=== PATIENT | male | born 1945 | race Caucasian/White ===

== ENCOUNTER 2016-09-27 08:42 | Emergency (ER) | payer MEDICARE ==
[~2016-09-27] VITALS: Ht 182.9 cm; Wt 100.0 kg
[~2016-09-27 08:42] MED LIST: RANI150 PO
[2016-09-27 08:44] VITALS: BP 165/87; PULSE 60; RESP 20; TEMP 97.5; O2SAT 96
[2016-09-27] MEDS ORDERED: ONDANSETRON HCL 4 MG/2 ML VIAL IV PUSH ONE (09:00)
[2016-09-27] MEDS ORDERED: SODIUM CHLOR 0.9% 1000 ML INJ 1,000 ML IV ONE (09:00)
[2016-09-27] MEDS ORDERED: TAMSULOSIN HCL 0.4 MG CAP PO ONE (09:00)
[2016-09-27] MEDS ORDERED: MORPHINE SULFATE 8 MG/ML INJ IV PUSH ONE (09:00)
[2016-09-27] MEDS ORDERED: OMEP10CA PO (09:07)
--- NOTE | 2016-09-27 09:07 | PD ---
HPI . Suprapubic pain Chief Complaint: Abdominal Pain Time Seen by Provider: 08:54 Travel History International Travel<30 days: No Contact w/Intl Traveler<30days: No Traveled to known affect area: No History of Present Illness HPI This patient presents with the chief complaint of suprapubic pain. Onset was last night. Pain has been constant and is getting progressively worse. Pain is exacerbated by lying down. Revised FLACC pain score is 0. Patient is also complaining with dribbling. He denies any fever. He denies any anorexia. He has had no nausea, vomiting or diarrhea. He states that he might be a little bit constipated. PFSH Past Medical History Heart Rhythm Problems: No Cancer: No Cardiac Catheterization: No Cardiovascular Problems: No High Cholesterol: No Congestive Heart Failure: No Diabetes: No Diminished Hearing: No Glaucoma: No Hepatitis: No Hiatal Hernia: No Hypertension: No Kidney Stones: Yes (REMOVED.) Respiratory: No Myocardial Infarction: No Thyroid Disease: No Past Surgical History Coronary Artery Bypass Graft: No Genitourinary Surgery: Yes (KIDNEY STONES) Neurologic Surgery: Yes (LUMBAR SURGERY) Pacemaker: No Other Surgery: Yes (RT KNEE) Social History Alcohol Use: Yes (a couple beers 3 to 4 times a week) Tobacco Use: No (quit 15 yrs ago, smoked 30yrs, 1 pk qd) Substance Use: No Allergies-Medications (Allergen,Severity, Reaction): Coded Allergies: No Known Allergies (Verified , 09/27/16) Reported Meds & Prescriptions Reported Meds & Active Scripts Active Reported Omeprazole 10 Mg Cap 10 Mg PO DAILY Review of Systems Except as stated in HPI: all other systems reviewed are Neg General / Constitutional: No: Fever, Chills Gastrointestinal: Positive: Abdominal Pain, Constipation, No: Nausea, Vomiting , Diarrhea Genitourinary: Positive: Decreased Urinary Output, Hesitancy, Dribbling, No: Urgency, Frequency, Dysuria, Hematuria Physical Exam Narrative GENERAL: Patient is awake and alert and does not appear to be in any distress. SKIN: Warm and dry. HEAD: Atraumatic. Normocephalic. EYES: Pupils equal and round. Extraocular movements are intact. ENT: No nasal bleeding or discharge. Mucous membranes pink and moist. NECK: Trachea midline. Neck is supple. CARDIOVASCULAR: Regular rate and rhythm. RESPIRATORY: No accessory muscle use. GASTROINTESTINAL: Abdomen soft. Suprapubic tenderness. Nondistended. No CVA tenderness. MUSCULOSKELETAL: No obvious deformities. No edema. NEUROLOGICAL: Awake and alert. No obvious cranial nerve deficits. Motor grossly within normal limits. Normal speech. PSYCHIATRIC: Appropriate mood and affect; insight and judgment normal. Data Data Last Documented VS Vital Signs Date Time Temp Pulse Resp B/P Pulse Ox O2 Delivery O2 Flow Rate FiO2 09/27/16 08:44 97.5 60 20 165/87 96 Room Air Orders Urinalysis - C+S If Indicated (09/27/16 08:58) Ct Abd/Pel W/O Iv Contrast (09/27/16 09:00) Sodium Chlor 0.9% 1000 Ml Inj (Ns 1000 M (09/27/16 09:00) Morphine Inj (Morphine Inj) (09/27/16 09:00) Ondansetron Inj (Zofran Inj) (09/27/16 09:00) Tamsulosin (Flomax) (09/27/16 09:00) Labs Laboratory Tests Test 09/27/16 09:46 Urine Color YELLOW Urine Turbidity CLEAR Urine pH 6.5 Urine Specific [place] 1.025 Urine Protein TRACE mg/dL Urine Glucose (UA) TRACE mg/dL Urine Ketones NEG mg/dL Urine Occult Blood NEG Urine Nitrite NEG Urine Bilirubin NEG Urine Urobilinogen 2.0 MG/DL Urine Leukocyte Esterase NEG Urine RBC 2 /hpf Urine WBC LESS THAN 1 /hpf Urine Mucus FEW /lpf Microscopic Urinalysis Comment CULT NOT INDICATED MDM Medical Decision Making Medical Screen Exam Complete: Yes Emergency Medical Condition: Yes Differential Diagnosis Differential diagnosis of abdominal pain includes but is not limited to gastritis, pancreatitis, hepatitis, gastroenteritis, gallbladder disease, constipation, urinary retention, UTI, peptic ulcer disease, diverticulitis or appendicitis Narrative Course This patient presents with suprapubic pain associated with urinary hesitancy and dribbling. I do not see any previous advanced radiographic studies of his abdomen. Therefore, I have ordered a CT to rule out AAA or kidney stone. He will be treated with IV fluids, IV analgesics and Flomax pending his workup. Last Impressions Abdomen/Pelvis CT 09/27/16 0900 Signed Impressions: Service Date/Time: Tuesday, September 27, 2016 10:33 - CONCLUSION: 1. Acute sigmoid diverticulitis without perforation, abscess, or obstruction. 2. No renal or ureteral calculi. 3. Hepatic steatosis. Rey Lugo Jr., MD Laboratory Tests Test 09/27/16 09:46 Urine Color YELLOW Urine Turbidity CLEAR Urine pH 6.5 Urine Specific [place] 1.025 Urine Protein TRACE mg/dL Urine Glucose (UA) TRACE mg/dL Urine Ketones NEG mg/dL Urine Occult Blood NEG Urine Nitrite NEG Urine Bilirubin NEG Urine Urobilinogen 2.0 MG/DL Urine Leukocyte Esterase NEG Urine RBC 2 /hpf Urine WBC LESS THAN 1 /hpf Urine Mucus FEW /lpf Microscopic Urinalysis Comment CULT NOT INDICATED This patient will be treated with Bactrim and Flagyl as well as [place] for pain. Diagnosis Primary Impression: Diverticulitis large intestine w/o perforation or abscess w/o bleeding Patient Instructions: Diverticulitis (DC), General Instructions, Narcotic given in the ED Med/Other Pt SpecificInfo: Prescription(s) given Scripts Hydrocodone-Acetaminophen ([place])5-325 mg Tab1 Tab PO Q4H PRN (PAIN) #12 TAB Ref 0 Prov:Khalida Alvarado MD 09/27/16 Metronidazole (Flagyl)500 Mg [id number] Mg PO BID 7 Days Ref 0 Prov:Khalida Alvarado MD 09/27/16 Sulfamethoxazole-Trimethoprim (Bactrim DS)800-160 Mg Tab1 Tab PO BID #20 TAB Ref 0 Prov:Khalida Alvarado MD 09/27/16 Disposition: 01 DISCHARGE HOME Condition: Stable Khalida Alvarado MD Sep 27, 2016 09:07
[2016-09-27 10:12] LABS: BLOOD, URINE NEG (NEG); COMMENT (UR) CULT NOT INDICATED; CULTURE IF INDICATED CULT NOT INDICATED; GLUCOSE,URINE TRACE mg/dL (NEG); KETONE, URINE NEG (NEG); MUCUS URINE FEW /lpf (OCC); NITRITE,URINE NEG (NEG); PH, URINE 6.5 (5.0-8.5); URINE COLOR YELLOW (YELLW/STRAW)
--- NOTE | 2016-09-27 11:08 | RADRPT ---
EXAM DATE/TIME: 09/27/2016 10:33 [facility] COMPARISON: No previous studies available for comparison. INDICATIONS : Low abdomen pain. ORAL CONTRAST: No oral contrast ingested. RADIATION DOSE: 8.58 CTDIvol (mGy) MEDICAL HISTORY : Renal calculi. SURGICAL HISTORY : None. ENCOUNTER: Initial ACUITY: 1 day PAIN SCALE: 5/10 LOCATION: Bilateral lower quadrant TECHNIQUE: Volumetric scanning of the abdomen and pelvis was performed. Using automated exposure control and ad justment of the mA and/or kV according to patient size, radiation dose was kept as low as reasonably achievable to obtain optimal diagnostic quality images. DICOM format image data is available electro nically for review and comparison. FINDINGS: LOWER LUNGS: The visualized lower lungs are clear. LIVER: Homogeneously low density without lesion. There is no dilation of the biliary tree. No calcified ga llstones. SPLEEN: Normal size without lesion. PANCREAS: Within normal limits. KIDNEYS: Normal in size and shape. There is no mass, stone, or hydronephrosis. ADRENAL GLANDS: Within normal limits. VASCULAR: Scattered calcified atherosclerotic plaque. No gross aneurysmal change. BOWEL/MESENTERY: There is stranding of the pericolonic fat involving the sigmoid colon. There is mild wall thickening. Multiple colonic diverticuli are seen within the sigmoid region. No free air or free fluid. No absce ss. Small bowel and stomach are unremarkable. ABDOMINAL WALL: Within normal limits. RETROPERITONEUM: There is no lymphadenopathy. BLADDER: No wall thickening or mass. REPRODUCTIVE: Within normal limits. INGUINAL: There is no lymphadenopathy or hernia. MUSCULOSKELETAL: Within normal limits for patient age. CONCLUSION: 1. Acute sigmoid diverticulitis without perforation, abscess, or obstruction. 2. No renal or ureteral calculi. 3. Hepatic steatosis. Rey Lugo Jr., MD on September 27, 2016 at 10:55 Board Certified Radiologist. This report was verified electronically.
[2016-09-27] MEDS ORDERED: NORC5TAB PO (11:28)
[2016-09-27] MEDS ORDERED: METR-1 PO (11:28)
[2016-09-27] MEDS ORDERED: BACT800T5 PO (11:28)
== END 2016-09-27 11:55 | disposition home or self-care (01) ==
LOC: NEPD 08:42
DX: K57.92 Diverticulitis of intestine, part unspecified, without perforation or abscess without bleeding (principal); K76.0 Fatty (change of) liver, not elsewhere classified; Z87.891 Personal history of nicotine dependence
CPT/HCPCS: 74176; 81001; 96361; 96374; 96375; 99285; J2270; J2405; J7030

== ENCOUNTER 2018-02-12 15:50 | Observation (INO) ==
[2018-02-12] MEDS ORDERED: Morphine Inj 4 MG/ML Vial IV.PUSH ONE (16:11)
--- NOTE | 2018-02-12 16:14 | ED ---
HPI General Chief complaint: Chest Pain Stated complaint: chest pain Time Seen by Provider: 02/12/18 16:10 History of Present Illness HPI narrative: 72-year-old male with history of hypertension on lisinopril presents for evaluation of chest pain. For 1 week he has had a substernal chest pain that does not radiate. He describes it as a dull constant pain with occasional sharp twinges. It seems to be worse with exertion. He reports that today he had some dizziness as well. He is denying headache, blurred vision, nausea, vomiting, cough, congestion, abdominal pain, lower extremity edema. He reports that he is compliant with his prescribed lisinopril. He is not on any other medications. He denies any tobacco use. He denies any known history of aortic aneurysm. Symptoms are moderate. No other complaints. Related Data Home Medications Medication Instructions Recorded Confirmed lisinopril 20 mg PO DAILY 02/12/18 02/12/18 metformin 500 mg PO BID 02/12/18 02/12/18 omeprazole 20 mg PO BID 02/12/18 02/12/18 Allergies Allergy/AdvReac Type Severity Reaction Status Date / Time No Known Allergies Allergy Uncoded 09/27/16 09:52 Review of Systems ROS: all other systems reviewed are negative [facility] Medical History Medical History Diabetes (Acute) Hypertension (Acute) Surgical History Surgical History No history of previous surgery (Acute) Social History Social History Substance History: No History of Abuse Second Hand Smoke Exposure: No Smoking Status: Never smoker How Often Do You Have a Drink Containing Alcohol: 2 to 3 times a week Recent Travel in [facility] within the Last 8 Weeks: No Recent Out of Country Travel within the Last 8 Weeks: No Exam Narrative Exam Narrative: GENERAL: Well-developed well-nourished male in no acute distress. He is hypertensive bilateral upper extremities. SKIN: Warm and dry. HEAD: Atraumatic. Normocephalic. EYES: Pupils equal and round. No scleral icterus. No injection or drainage. ENT: No nasal bleeding or discharge. Mucous membranes pink and moist. NECK: Trachea midline. No JVD. CARDIOVASCULAR: Regular rate and rhythm. No murmur appreciated. RESPIRATORY: No accessory muscle use. Clear to auscultation. Breath sounds equal bilaterally. GASTROINTESTINAL: Abdomen soft, non-tender, nondistended. Hepatic and splenic margins not palpable. MUSCULOSKELETAL: No obvious deformities. No clubbing. No cyanosis. No edema. NEUROLOGICAL: Awake and alert. No obvious cranial nerve deficits. Motor grossly within normal limits. Normal speech. PSYCHIATRIC: Appropriate mood and affect; insight and judgment normal. Course Initial Documented Vital Signs Temperature 97.6 F 02/12/18 15:58 Pulse Rate 77 02/12/18 15:58 Respiratory Rate 18 02/12/18 15:58 Blood Pressure 234/116 H 02/12/18 15:58 Pulse Oximetry 99 02/12/18 15:58 Last Documented Vital Signs Temperature 97.6 F 02/12/18 15:58 Pulse Rate 74 02/12/18 18:31 Respiratory Rate 17 02/12/18 18:31 Blood Pressure 211/102 H 02/12/18 18:31 Pulse Oximetry 98 02/12/18 18:31 Medical Decision Making IBAN Attestation IBAN supervised visit: Yes Attestation: I, Dr. Priest, have reviewed the advance practice practitioner's documentation and am in agreement, met with the patient face to face, made the diagnosis, and the medical decision making was done by me. *My assessment and Findings: 72 yo M w CP. Tn < 0.02. EKG sinus, rate 54, incomplete RBBB; HTN 220/110. BP dropped to 130s after SL nitro and 4mg morphine. CP went away with resolution of HTN. CTA shows no dissection. Admission for hypertensive urgency and/or ACS. Please refer to CHALINO Carl's note for additional information. Pt resting comfortably at 650pm, updated with results and plan. MDM Narrative Medical decision making narrative: Patient was placed on ECG monitor and pulse oximetry. Twelve-lead EKG obtained. Lab work, chest x-ray ordered. The patient was given aspirin, nitroglycerin, morphine. Because of the patient's severe hypertension, dizziness, CTA of the aorta was ordered. The patient was reexamined after 1 sublingual nitroglycerin and 4 mg of morphine , aspirin and his pain has resolved completely. His blood pressure did drop quite a bit. He became somewhat lightheaded and diaphoretic for several minutes but this improved after he was laid down flat. Lab work is been reviewed and found to be reassuring. Cardiac enzymes are negative. CT angiogram of the aorta reveals no acute abnormalities, atherosclerosis of the coronary vessels are noted. Upon reexamination he remains chest pain-free. His blood pressure has increased back to 192/93. Therefore nitropaste ordered. At this point in time the plan is to admit him for hypertensive urgency and chest pain. He is agreeable. Medical Screen Exam Complete: Yes Emergency Medical Condition: Yes Differential Diagnosis Differential Diagnosis: Hypertensive urgency, acute coronary syndrome, aortic dissection, pulmonary embolism, pericarditis, myocarditis, pneumothorax, hemothorax Lab Data Result diagrams: 02/12/18 16:25 02/12/18 16:25 Lab Results 02/12/18 02/12/18 02/12/18 Range/Units 16:25 16:25 16:25 WBC 6.0 (4.0-11.0) th/mm3 RBC 5.07 (4.50-5.90) mil/mm3 Hgb 17.0 (13.0-17.0) gm/dL Hct 49.0 (39.0-51.0) % MCV 96.5 (80.0-100.0) fL MCH 33.6 (27.0-34.0) pg MCHC 34.8 (32.0-36.0) % RDW 14.7 (11.6-17.2) % Plt Count 145 L (150-450) th/mm3 MPV 9.9 (7.0-11.0) fL Neut % (Auto) 68.0 (16.0-70.0) % Lymph % (Auto) 20.4 (9.0-44.0) % [place] % (Auto) 9.6 H (0.0-8.0) % Eos % (Auto) 1.1 (0.0-4.0) % Baso % (Auto) 0.9 (0.0-2.0) % Neut # (Auto) 4.1 (1.8-7.7) th/mm3 Lymph # (Auto) 1.2 (1.0-4.8) th/mm3 [place] # (Auto) 0.6 (0.0-0.9) th/mm3 Eos # (Auto) 0.1 (0.0-0.4) th/mm3 Baso # (Auto) 0.1 (0.0-0.2) th/mm3 WBC Differential . Differential Comment Auto diff final PT 10.5 (9.8-11.6) sec INR 1.0 Ratio APTT 26.2 (23.4-31.7) sec Sodium 141 (136-145) meq/L Potassium 3.7 (3.5-5.1) meq/L Chloride 106 (98-107) meq/L Carbon Dioxide 24.1 (21.0-32.0) meq/L Anion Gap 11 (5-15) meq/L BUN 14 (7-18) mg/dL Creatinine 1.04 (0.60-1.30) mg/dL Estimated GFR 71 L (>89) mL/min Random Glucose 105 (74-106) mg/dL Calcium 8.0 L (8.5-10.1) mg/dL Magnesium 1.8 (1.5-2.5) mg/dL Total Bilirubin 0.9 (0.2-1.0) mg/dL AST 42 H (15-37) U/L ALT 63 (12-78) U/L Alkaline Phosphatase 68 (45-117) U/L Total Creatine Kinase 59 (39-308) U/L Troponin I Less than 0.02 L (0.02-0.05) ng/mL Total Protein 7.5 (6.4-8.2) g/dL Albumin 3.9 (3.4-5.0) g/dL Imaging Data Radiologist's impression: Chest X-Ray 02/12/18 16:11 CONCLUSION: No acute cardiopulmonary abnormality is identified. Thoracic Aorta CT 02/12/18 16:40 CONCLUSION: 1. No aneurysm or dissection is identified. 2. There is coronary artery calcification and moderate severity atherosclerotic disease in the infrarenal aspect. 3. Additionally, no other acute abnormality is identified to explain the clinical symptoms. Nonacute findings include hepatic steatosis and small hiatal hernia. Discharge Plan Discharge Disposition Patient Disposition: ED Admit(ED Internal Use Only) Discharge Condition Condition: Stable Discharge Details Diagnosis: Chest pain, Hypertensive urgency Physicians Team ED Provider: Eduardo Priest ED Midlevel Provider: Duke Carl Primary Care Provider: [facility],Physician [facility] Rxs /Orders / Referrals /Forms Prescriptions: No Action metformin 500 mg Tablet 500 mg PO BID RF: 0 lisinopril 20 mg Tablet 20 mg PO DAILY RF: 0 omeprazole 20 mg Tablet,Delayed Release (Dr/Ec) 20 mg PO BID RF: 0 Discharge Instructions Patient Printed Instructions: Chest Pain (ED) Discharge Interventions Interventions: Vital Signs Last Done: 02/12/18 16:45 Status ED Status: With Doctor
--- NOTE | 2018-02-12 16:33 | XR ---
EXAM DATE: 02/12/2018 4:25 PM EST AGE/SEX: 72 years / Male INDICATIONS: Shortness of breath and left sided chest pain. CLINICAL DATA: This is the patient's initial encounter. Patient reports that signs and symptoms have been present for 1 day and indicates a pain score of 8/10. MEDICAL/SURGICAL HISTORY: Diabetes. Hypertension. None. COMPARISON: No prior exams available for comparison. FINDINGS: Portable AP view of the chest demonstrates a normal-sized cardiac silhouette. No effusion, consolidat ion, or pneumothorax is identified. The bones and soft tissues demonstrate no acute finding. There i s a calcified granuloma in the left midlung zone and EKG lines overlie the patient. CONCLUSION: No acute cardiopulmonary abnormality is identified. Electronically signed by: Cornelio Lopez MD 02/12/2018 4:32 PM EST
[2018-02-12 16:56] LABS: Baso # (Auto) 0.1 th/mm3 (0.0-0.2); Baso % (Auto) 0.9 % (0.0-2.0); Eos # (Auto) 0.1 th/mm3 (0.0-0.4); Eos % (Auto) 1.1 % (0.0-4.0); Lymph # (Auto) 1.2 th/mm3 (1.0-4.8); Lymph % (Auto) 20.4 % (9.0-44.0); Mean Corpuscular HGB Conc 34.8 % (32.0-36.0); Mean Corpuscular Hemoglobin 33.6 pg (27.0-34.0); Mean Corpuscular Volume 96.5 fL (80.0-100.0); Mean Platelet Volume 9.9 fL (7.0-11.0); Mono # (Auto) 0.6 th/mm3 (0.0-0.9); Mono % (Auto) 9.6 % (0.0-8.0); Neut # (Auto) 4.1 th/mm3 (1.8-7.7); Platelet Count 145 th/mm3 (150-450); Red Blood Count 5.07 mil/mm3 (4.50-5.90); Red Cell Distribution Width 14.7 % (11.6-17.2)
[2018-02-12 17:04] LABS: Activated Partial Thrombo Time 26.2 sec (23.4-31.7); Prothrombin Time 10.5 sec (9.8-11.6)
[2018-02-12 17:06] LABS: Alanine Aminotransferase 63 U/L (12-78); Albumin 3.9 g/dL (3.4-5.0); Anion Gap 11 meq/L (5-15); Aspartate Aminotransferase 42 U/L (15-37); Blood Urea Nitrogen 14 mg/dL (7-18); Carbon Dioxide 24.1 meq/L (21.0-32.0); Chloride 106 meq/L (98-107); Glomerular Filtration Rate 71 mL/min (>89); Glucose,Random 105 mg/dL (74-106); Magnesium 1.8 mg/dL (1.5-2.5); Potassium 3.7 meq/L (3.5-5.1); Sodium 141 meq/L (136-145)
[2018-02-12 17:10] LABS: Alkaline Phosphatase 68 U/L (45-117); Total Protein 7.5 g/dL (6.4-8.2)
[2018-02-12 17:11] LABS: Creatine Kinase 59 U/L (39-308)
--- NOTE | 2018-02-12 18:42 | CT ---
EXAM DATE: 02/12/2018 6:33 PM EST AGE/SEX: 72 years / Male INDICATIONS: Chest pain; possible dissection. CLINICAL DATA: This is the patient's initial encounter. Patient reports that signs and symptoms have been present for 1 day and indicates a pain score of 7/10. MEDICAL/SURGICAL HISTORY: Diabetes. Hypertension. None. RADIATION DOSE: 9.14 CTDI (mGy) COMPARISON: [place], CT ABDOMEN & PELVIS W/O CONTRAST, 09/27/2016. . TECHNIQUE: Volumetric scanning was performed using a multi-row detector CT scanner during bolus infu kumar of 100 ml Omnipaque 350 (iohexol) nonionic water-soluble contrast as a single exam dose. The d estrada was post processed with a variety of visualization algorithms including full volume maximum inten sity projection, multi-planar sliding thin slab reformation, curved planar reformation, and surface r endering techniques. Using automated exposure control and adjustment of the mA and/or kV according t o patient size, radiation dose was kept as low as reasonably achievable to obtain optimal diagnostic quality images. DICOM format image data is available electronically for review and comparison. FINDINGS: Nonvascular findings: There is a calcified granuloma in the left upper lobe. Otherwise, the lungs dem onstrate no acute abnormality. There is no acute abnormality within the chest. Liver demonstrates att enuation suggesting steatosis. No liver lesion is identified. The adrenal glands, kidneys, spleen, an d pancreas demonstrate no acute abnormality. There is a small hiatal hernia. The small and large alexandra l demonstrate no acute finding. There is sigmoid diverticulosis. There are degenerative changes throu ghout the spine. Vascular findings: Pulmonary arteries demonstrate no abnormality. There is coronary artery calcificat ion. The ascending and descending thoracic aorta are nonaneurysmal. Great vessels demonstrate no acut e abnormality. There is mild atherosclerotic disease of the aorta. The celiac trunk, superior mesente elijah artery, and inferior mesenteric artery are patent without significant abnormality. There are clifford nt renal arteries bilaterally with an accessory left lower pole renal artery present. Infrarenal aspe ct of the aorta demonstrates moderate to severe atherosclerotic disease. The atherosclerotic disease extends into the iliac vessels. No aneurysm or dissection is visualized. CONCLUSION: 1. No aneurysm or dissection is identified. 2. There is coronary artery calcification and moderate severity atherosclerotic disease in the infra renal aspect. 3. Additionally, no other acute abnormality is identified to explain the clinical symptoms. Nonacute findings include hepatic steatosis and small hiatal hernia. Electronically signed by: Cornelio Lopez MD 02/12/2018 6:41 PM EST
--- NOTE | 2018-02-12 19:11 | P.HPFP ---
History of Present Illness Primary Care Physician: Physician [facility] <Azar Jimenez - 02/13/18 15:35> [facility]ician [facility] <Neris Scott - 02/12/18 19:11> Chief Complaint: chest pain <Neris Scott - 02/12/18 20:33> History of Present Illness: 72-year-old with a past medical history of hypertension and diabetes who presented to the ED with a one-week history of chest pain. The pain is located in the center of his chest and it waxes and wanes. Laying on either side makes the pain worse and laying flat on his back alleviates the pain. Activity does not aggravate the chest pain. 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 Patient was placed on lisinopril about 4-5 months ago and has been taking the medication daily for his HTN. He reports his home blood pressures have been in the 180s systolic. During his chest pain attacks he reports dizziness, lightheadedness, diaphoresis , near syncope, shortness of breath. He does have trouble initiating his urine stream but this is not new. Denies any vision changes, abdominal pain, bowel changes, dysuria, weakness, headache, speech difficulties, or hearing difficulty. PMH: hypertension diabetes but has not been taking his metformin PSH: right knee meniscus surgery Family History: mother: unknown father: viral brain disease Social History: Tobacco: quit 30 years ago but smoked 30 pack years Alcohol: 3-4 beers a day Loist 3 months ago Illicit drugs: occasional marijuana use [facility] [place] <Neris Scott - 02/12/18 20:33> - Diagnosis (1) Hypertensive urgency (2) Chest pain (3) GERD (gastroesophageal reflux disease) (4) Diabetes mellitus (5) Hypocalcemia (6) DVT prophylaxis (7) Nutrition, metabolism, and development symptoms <Azar Jimenez - 02/13/18 15:35> (1) Hypertensive urgency (2) Chest pain (3) GERD (gastroesophageal reflux disease) (4) Diabetes mellitus (5) Hypocalcemia (6) DVT prophylaxis (7) Nutrition, metabolism, and development symptoms <Neris Scott - 12/09/18 21:04> Review of Systems All other systems reviewed negative except as stated in HPI <TylerNeris Wilkins - 02/12/18 20:33> PMFSH - History History Provided By: Patient <Neris Scott - 02/12/18 19:11> - Medical History Medical History: Medical History (Last Updated 02/12/18 @ 16:44 by Juliet Marquez) Diabetes Hypertension <Azar Jimenez - 02/13/18 15:35> Medical History (Last Updated 02/12/18 @ 16:44 by Juliet Marquez) Diabetes Hypertension <TylerNeris A - 02/12/18 19:11> - Surgical History Surgical History: Surgical History (Last Updated 02/12/18 @ 16:44 by Juliet Marquez) No history of previous surgery <Azar Jimenez - 02/13/18 15:35> Surgical History (Last Updated 02/12/18 @ 16:44 by Juliet Marquez) No history of previous surgery <Neris Scott - 02/12/18 19:11> - Social History I have reviewed the patient's Social History: Yes <MauryalondraNeris Franky - 20:33> - Tobacco History Second Hand Smoke Exposure: No <Neris Scott - 02/12/18 19:11> Smoking Status: Never smoker <Neris Scott - 02/12/18 19:11> - Alcohol History How Often Do You Have a Drink Containing Alcohol: 2 to 3 times a week < Neris Scott - 02/12/18 19:11> - Substance Use History Substance History: No History of Abuse <Neris Scott - 02/12/18 19:11> - Travel History Recent Travel in the [place] Within the Last 8 Weeks: No <Neris Scott - 11/22 19:11> Recent Travel Out of the Country Within the Last 8 Weeks: No <Neris Scott - 02/12/18 19:11> - Immunization History Tetanus Immunization: >5 Years <Neris Scott - 02/12/18 19:11> Medications and Allergies Allergies Allergy/AdvReac Type Severity Reaction Status Date / Time No Known Allergies Allergy Uncoded 09/27/16 09:52 <Azar Jimenez - 02/13/18 15:35> Home Medications Medication Instructions Recorded Confirmed Type lisinopril 20 mg PO DAILY 02/12/18 02/12/18 History metformin 500 mg PO BID 02/12/18 02/12/18 History omeprazole 20 mg PO BID 02/12/18 02/12/18 History <Azar Jimenez - 02/13/18 15:35> Active Medications: Active Medications Sodium Chloride (Ns Flush) 2 ml IV.FLUSH UNSCH PRN PRN Reason: FLUSH AFTER USING IV ACCESS <Neris Scott - 02/12/18 19:11> Exam Vital signs: Vital Signs 02/12/18 15:58 02/12/18 16:11 02/12/18 16:12 Temperature 97.6 F Pulse Rate 77 Respiratory Rate 18 Blood Pressure 234/116 H 223/109 H Pulse Oximetry 99 98 02/12/18 16:45 02/12/18 18:05 02/12/18 18:31 Temperature Pulse Rate 63 61 74 Respiratory Rate 20 15 17 Blood Pressure 126/73 187/93 H 211/102 H Pulse Oximetry 94 L 98 98 02/12/18 20:20 02/12/18 22:50 02/12/18 23:16 Temperature Pulse Rate 74 63 70 Respiratory Rate 18 17 21 Blood Pressure 189/102 H 185/96 H 173/92 H Pulse Oximetry 95 96 02/12/18 23:40 02/13/18 00:00 02/13/18 04:00 Temperature 96.6 F L 96.1 F L Pulse Rate 66 60 56 L Respiratory Rate 16 18 18 Blood Pressure 170/90 H 163/90 H 186/97 H Pulse Oximetry 96 96 02/13/18 07:42 02/13/18 13:28 Temperature 97.4 F L 97.4 F L Pulse Rate 61 64 Respiratory Rate 16 16 Blood Pressure 169/92 H 164/87 H Pulse Oximetry 95 97 Intake & Output 02/12/18 02/13/18 02/13/18 18:59 06:59 18:59 Weight 95.254 kg 95.254 kg Other: Date of Last Bowel Movement 02/12/18 Weight On Admission 95.254 kg <Azar Jimenez - 02/13/18 15:35> Vital Signs 02/12/18 15:58 02/12/18 16:11 02/12/18 16:12 Temperature 97.6 F Pulse Rate 77 Respiratory Rate 18 Blood Pressure 234/116 H 223/109 H Pulse Oximetry 99 98 02/12/18 16:45 02/12/18 18:05 02/12/18 18:31 Temperature Pulse Rate 63 61 74 Respiratory Rate 20 15 17 Blood Pressure 126/73 187/93 H 211/102 H Pulse Oximetry 94 L 98 98 Intake & Output 02/12/18 02/12/18 02/13/18 06:59 18:59 06:59 Weight 95.254 kg <Neris Scott - 02/12/18 19:11> - Constitutional no acute distress <Neris Scott - 02/12/18 20:33> Comments: laying flat in bed <Neris Scott - 02/12/18 20:33> - Routine HEENT Exam Head: Present: normocephalic, atraumatic <Neris Scott A - 02/12/18 20:33> Eye: Present: EOMI, PERRL <Neris Scott A - 02/12/18 20:33> - Routine Neck Exam Present: full ROM <Neris Scott A - 02/12/18 20:33> - Routine Respiratory Exam Present: CTA bilaterally. Absent: accessory muscle use, decreased breath sounds <Neris Scott A - 02/12/18 20:33> - Routine Cardiovascular Exam Present: RRR, S1, S2. Absent: murmur <Neris Scott A - 02/12/18 20:33> - Routine Abdominal Exam Present: soft, normoactive bowel sounds, tenderness <Neris Scott A - 02/12 20:33> - Routine Extremities Exam Present: full ROM, pulses intact. Absent: cyanosis, edema <Neris Scott A - 02/12/18 20:33> - Routine Skin Exam Present: intact <Neris Scott A - 02/12/18 20:33> - Routine Neurological Exam Present: alert, oriented X3, CN II-XII intact, moving all extremities, vision grossly intact, hearing grossly intact, normal speech. Absent: sensory deficit , motor deficit, pronator drift, altered mental status, facial asymmetry < Neris Scott - 02/12/18 20:33> Results - Labs Result diagrams: 02/13/18 03:52 02/13/18 03:52 <Azar Jimenez - 02/13/18 15:35> Abnormal lab results 02/12/18 02/12/18 02/12/18 Range/Units 16:25 16:25 21:14 Plt Count 145 L (150-450) th/mm3 [place] % (Auto) 9.6 H (0.0-8.0) % Estimated GFR 71 L (>89) mL/min POC Glucose (68-110) mg/dl Random Glucose (74-106) mg/dL Calcium 8.0 L (8.5-10.1) mg/dL AST 42 H (15-37) U/L Troponin I Less than 0.02 L Less than 0.02 L (0.02-0.05) ng/mL LDL Cholesterol, Calc (0-99) mg/dL 02/13/18 02/13/18 02/13/18 Range/Units 03:52 03:52 08:29 Plt Count 123 L (150-450) th/mm3 [place] % (Auto) 9.2 H (0.0-8.0) % Estimated GFR 85 L (>89) mL/min POC Glucose 129 H (68-110) mg/dl Random Glucose 115 H (74-106) mg/dL Calcium 8.3 L (8.5-10.1) mg/dL AST (15-37) U/L Troponin I (0.02-0.05) ng/mL LDL Cholesterol, Calc 121 H (0-99) mg/dL 02/13/18 Range/Units 12:49 Plt Count (150-450) th/mm3 [place] % (Auto) (0.0-8.0) % Estimated GFR (>89) mL/min POC Glucose 196 H (68-110) mg/dl Random Glucose (74-106) mg/dL Calcium (8.5-10.1) mg/dL AST (15-37) U/L Troponin I (0.02-0.05) ng/mL LDL Cholesterol, Calc (0-99) mg/dL Short CBC 02/12/18 02/13/18 Range/Units 16:25 03:52 WBC 6.0 4.6 (4.0-11.0) th/mm3 Hgb 17.0 15.9 (13.0-17.0) gm/dL Hct 49.0 45.8 (39.0-51.0) % Plt Count 145 L 123 L (150-450) th/mm3 BMP 02/12/18 02/13/18 16:25 03:52 Sodium 141 137 Potassium 3.7 3.7 Chloride 106 104 Carbon Dioxide 24.1 26.9 BUN 14 13 Creatinine 1.04 0.89 Calcium 8.0 L 8.3 L Cardiac Enzymes 02/12/18 02/12/18 Range/Units 16:25 21:14 Total Creatine Kinase 59 45 (39-308) U/L Troponin I Less than 0.02 L Less than 0.02 L (0.02-0.05) ng/mL Liver Function 02/12/18 Range/Units 16:25 Total Bilirubin 0.9 (0.2-1.0) mg/dL AST 42 H (15-37) U/L ALT 63 (12-78) U/L Alkaline Phosphatase 68 (45-117) U/L Albumin 3.9 (3.4-5.0) g/dL <Azar Jimenez - 02/13/18 15:35> Abnormal lab results 02/12/18 02/12/18 Range/Units 16:25 16:25 Plt Count 145 L (150-450) th/mm3 [place] % (Auto) 9.6 H (0.0-8.0) % Estimated GFR 71 L (>89) mL/min Calcium 8.0 L (8.5-10.1) mg/dL AST 42 H (15-37) U/L Troponin I Less than 0.02 L (0.02-0.05) ng/mL Short CBC 02/12/18 Range/Units 16:25 WBC 6.0 (4.0-11.0) th/mm3 Hgb 17.0 (13.0-17.0) gm/dL Hct 49.0 (39.0-51.0) % Plt Count 145 L (150-450) th/mm3 BMP 02/12/18 16:25 Sodium 141 Potassium 3.7 Chloride 106 Carbon Dioxide 24.1 BUN 14 Creatinine 1.04 Calcium 8.0 L Cardiac Enzymes 02/12/18 Range/Units 16:25 Total Creatine Kinase 59 (39-308) U/L Troponin I Less than 0.02 L (0.02-0.05) ng/mL Liver Function 02/12/18 Range/Units 16:25 Total Bilirubin 0.9 (0.2-1.0) mg/dL AST 42 H (15-37) U/L ALT 63 (12-78) U/L Alkaline Phosphatase 68 (45-117) U/L Albumin 3.9 (3.4-5.0) g/dL <Neris Scott - 02/12/18 19:11> - Imaging Impressions Chest X-Ray 02/12/18 16:11 CONCLUSION: No acute cardiopulmonary abnormality is identified. Thoracic Aorta CT 02/12/18 16:40 CONCLUSION: 1. No aneurysm or dissection is identified. 2. There is coronary artery calcification and moderate severity atherosclerotic disease in the infrarenal aspect. 3. Additionally, no other acute abnormality is identified to explain the clinical symptoms. Nonacute findings include hepatic steatosis and small hiatal hernia. Myocardial Perfusion Scan Nuc Med 02/13/18 00:00 CONCLUSION: 1. Negative examination for stress-induced ischemia.. <Azar Jimenez - 02/13/18 15:35> Impressions Chest X-Ray 02/12/18 16:11 CONCLUSION: No acute cardiopulmonary abnormality is identified. Thoracic Aorta CT 02/12/18 16:40 CONCLUSION: 1. No aneurysm or dissection is identified. 2. There is coronary artery calcification and moderate severity atherosclerotic disease in the infrarenal aspect. 3. Additionally, no other acute abnormality is identified to explain the clinical symptoms. Nonacute findings include hepatic steatosis and small hiatal hernia. <Neris Scott - 02/12/18 19:11> Caprini VTE Risk Assessment Caprini VTE Risk Assessment: Moderate/High Risk (score >= 2) <Neris Scott - 02/12/18 20:33> Caprini Risk Assessment Model: Point Value = 1 Point Value = 2 Point Value = 3 Point Value = 5 Age 41-60 Minor surgery BMI > 25 kg/m2 Swollen legs Varicose veins or History of unexplained or recurrent spontaneous Oral contraceptives or hormone replacement Sepsis (< 1 month) Serious lung disease, including pneumonia (< 1 month) Abnormal pulmonary function Acute myocardial infarction Congestive heart failure (< 1 month) History of inflammatory bowel disease Medical patient at bed rest Age 61-74 Arthroscopic surgery Major open surgery (> 45 min) Laparoscopic surgery (> 45 min) Malignancy Confined to bed (> 72 hours) Immobilizing plaster cast Central venous access Age >= 75 History of VTE Family history of VTE Factor V Leiden Prothrombin [id number] Lupus anticoagulant Anticardiolipin antibodies Elevated serum homocysteine Heparin-induced thrombocytopenia Other congenital or acquired thrombophilia Stroke (< 1 month) Elective arthroplasty Hip, pelvis, or leg fracture Acute spinal cord injury (< 1 month) <Azar Jimenez - 02/13/18 15:35> Point Value = 1 Point Value = 2 Point Value = 3 Point Value = 5 Age 41-60 Minor surgery BMI > 25 kg/m2 Swollen legs Varicose veins or History of unexplained or recurrent spontaneous Oral contraceptives or hormone replacement Sepsis (< 1 month) Serious lung disease, including pneumonia (< 1 month) Abnormal pulmonary function Acute myocardial infarction Congestive heart failure (< 1 month) History of inflammatory bowel disease Medical patient at bed rest Age 61-74 Arthroscopic surgery Major open surgery (> 45 min) Laparoscopic surgery (> 45 min) Malignancy Confined to bed (> 72 hours) Immobilizing plaster cast Central venous access Age >= 75 History of VTE Family history of VTE Factor V Leiden Prothrombin [id number] Lupus anticoagulant Anticardiolipin antibodies Elevated serum homocysteine Heparin-induced thrombocytopenia Other congenital or acquired thrombophilia Stroke (< 1 month) Elective arthroplasty Hip, pelvis, or leg fracture Acute spinal cord injury (< 1 month) <Neris Scott - 02/12/18 20:33> Prophylaxis Regimen: Total Risk Factor Score Risk Level Prophylaxis Regimen 0-1 Low Early ambulation 2 Moderate Order ONE of the following: *Sequential Compression Device (SCD) *Heparin 5000 units SQ BID 3-4 Higher Order ONE of the following medications: *Heparin 5000 units SQ TID *Enoxaparin/Lovenox 40 mg SQ daily (WT < 150 kg, CrCl > 30 mL/min) *Enoxaparin/Lovenox 30 mg SQ daily (WT < 150 kg, CrCl > 10-29 mL/min) *Enoxaparin/Lovenox 30 mg SQ BID (WT < 150 kg, CrCl > 30 mL/min) AND/OR *Sequential Compression Device (SCD) 5 or more Highest Order ONE of the following medications: *Heparin 5000 units SQ TID (Preferred with Epidurals) *Enoxaparin/Lovenox 40 mg SQ daily (WT < 150 kg, CrCl > 30 mL/min) *Enoxaparin/Lovenox 30 mg SQ daily (WT < 150 kg, CrCl > 10-29 mL/min) *Enoxaparin/Lovenox 30 mg SQ BID (WT < 150 kg, CrCl > 30 mL/min) AND *Sequential Compression Device (SCD) <Azar Jimenez - 02/13/18 15:35> Total Risk Factor Score Risk Level Prophylaxis Regimen 0-1 Low Early ambulation 2 Moderate Order ONE of the following: *Sequential Compression Device (SCD) *Heparin 5000 units SQ BID 3-4 Higher Order ONE of the following medications: *Heparin 5000 units SQ TID *Enoxaparin/Lovenox 40 mg SQ daily (WT < 150 kg, CrCl > 30 mL/min) *Enoxaparin/Lovenox 30 mg SQ daily (WT < 150 kg, CrCl > 10-29 mL/min) *Enoxaparin/Lovenox 30 mg SQ BID (WT < 150 kg, CrCl > 30 mL/min) AND/OR *Sequential Compression Device (SCD) 5 or more Highest Order ONE of the following medications: *Heparin 5000 units SQ TID (Preferred with Epidurals) *Enoxaparin/Lovenox 40 mg SQ daily (WT < 150 kg, CrCl > 30 mL/min) *Enoxaparin/Lovenox 30 mg SQ daily (WT < 150 kg, CrCl > 10-29 mL/min) *Enoxaparin/Lovenox 30 mg SQ BID (WT < 150 kg, CrCl > 30 mL/min) AND *Sequential Compression Device (SCD) <Neris Scott - 02/12/18 19:11> Assessment and Plan - Assessment (1) Hypertensive urgency Code(s): I16.0 - Hypertensive urgency Status: Resolved (2) Chest pain Code(s): R07.9 - Chest pain, unspecified Status: Resolved (3) GERD (gastroesophageal reflux disease) Code(s): K21.9 - Gastro-esophageal reflux disease without esophagitis Status: Acute (4) Diabetes mellitus Code(s): E11.9 - Type 2 diabetes mellitus without complications Status: Acute (5) Hypocalcemia Code(s): E83.51 - Hypocalcemia Status: Acute (6) DVT prophylaxis Status: Acute (7) Nutrition, metabolism, and development symptoms Code(s): R63.8 - Other symptoms and signs concerning food and fluid intake Status: Acute <Azar Jimenez - 02/13/18 15:35> (1) Hypertensive urgency Code(s): I16.0 - Hypertensive urgency Status: Acute Plan: Patient with blood pressures 211/102 and chest pain. His initial troponin was < 0.02 and EKG sinus rhythm with RBBB. According to the patient, this is new onset. He only started taking blood pressure medication about 4 months ago. -CKMB Q6h X 2 -Troponin Q6HX2 -EKG Q6H x 2 -Lipid profile- will likely start atorvastatin 40mg -HbA1c -Morphine pain scale -Supplemental O2 if Sats below 92% -Nitro paste PRN -Nitro SL PRN -Aspirin 325mg PO daily -Continue home lisinopril 20 mg daily -Clonidine 0.1mg PO Q3H with hold parameters (Hold for systolic blood pressure less than or equal to 160 systolic or 70 diastolic) -Consider adding a beta ej but his heart rate is in the 60s and 70s. -Telemetry -Consult cardiology (2) Chest pain Code(s): R07.9 - Chest pain, unspecified Status: Acute Plan: See hypertensive urgency plan (3) GERD (gastroesophageal reflux disease) Code(s): K21.9 - Gastro-esophageal reflux disease without esophagitis Status: Acute Plan: Continue home PPI (4) Diabetes mellitus Code(s): E11.9 - Type 2 diabetes mellitus without complications Status: Acute Plan: -Hold metformin -Start low dose SSI -HBA1C (5) Hypocalcemia Code(s): E83.51 - Hypocalcemia Status: Acute Plan: Calcium at 8.0 on admission. -Calcium carbonate chew 500mg once -Monitor (6) DVT prophylaxis Status: Acute Plan: Heparin 5000unit SQ Q12H (7) Nutrition, metabolism, and development symptoms Code(s): R63.8 - Other symptoms and signs concerning food and fluid intake Status: Acute Plan: Fluids: PO intake Electrolytes: monitor replete as needed Nutrition: cardiac diet <Neris Scott - 02/12/18 21:04> - Attending Attestation See the residents documentation for details. I saw and evaluated the patient regarding the crowder portions of this evaluation and agree with the residents findings and plans as written. Parts of this note were created using [employer] voice recognition software program. While efforts were made to correct any mistakes made by this software, some mistakes, errors, and omissions may remain in the final note that were not caught when the note was originally created. Plan of care was discussed and agreed upon with the patient as specifically documented in the above note. An opportunity to ask questions with explanation was provided. Patient voiced understanding on all information reviewed and discussed. <Azar Jimenez - 02/13/18 15:35>
[2018-02-12] MEDS ORDERED: Bisacodyl 10 MG Supp RECTAL PRN (19:49)
[2018-02-12] MEDS ORDERED: Haloperidol Inj 5 MG/ML Ampul IV.PUSH PRN (19:49)
[2018-02-12] MEDS ORDERED: Ibuprofen 400 MG Tablet PO PRN (19:49)
[2018-02-12] MEDS ORDERED: Morphine Sulfate Inj 2 MG/ML Vial IV.PUSH PRN ×3 (19:49)
[2018-02-12] MEDS ORDERED: Naloxone Inj 0.4 MG/ML Vial IV.PUSH PRN (19:49)
[2018-02-12] MEDS ORDERED: Acetaminophen 325 MG Tablet PO PRN (19:49)
[2018-02-12] MEDS ORDERED: LORazepam 1 MG Tablet PO PRN (19:49)
[2018-02-12] MEDS ORDERED: Morphine Inj 4 MG/ML Vial IV.PUSH PRN (19:49)
[2018-02-12] MEDS ORDERED: Heparin - SQ 10,000 UNITS/ML Vial SQ SCH (20:00)
[2018-02-12] MEDS ORDERED: Dextrose 50% in Water 50 ML Vial IV.PUSH PRN (20:10)
[2018-02-12] MEDS: Insulin NovoLOG Aspart Correctional Sugar Inj SQ SCH (20:22)
[2018-02-12 21:58] LABS: Creatine Kinase 45 U/L (39-308)
[2018-02-13] MEDS: Insulin NovoLOG Aspart Correctional Sugar Inj SQ SCH ×3 (03:46→12:58)
[2018-02-13 05:09] LABS: Eos # (Auto) 0.1 th/mm3 (0.0-0.4); Eos % (Auto) 1.8 % (0.0-4.0); Hematocrit 45.8 % (39.0-51.0); Hemoglobin 15.9 gm/dL (13.0-17.0); Lymph % (Auto) 22.5 % (9.0-44.0); Mean Corpuscular HGB Conc 34.8 % (32.0-36.0); Mean Corpuscular Hemoglobin 32.8 pg (27.0-34.0); Mean Corpuscular Volume 94.4 fL (80.0-100.0); Mean Platelet Volume 9.7 fL (7.0-11.0); Mono # (Auto) 0.4 th/mm3 (0.0-0.9); Mono % (Auto) 9.2 % (0.0-8.0); Neut % (Auto) 65.5 % (16.0-70.0); Platelet Count 123 th/mm3 (150-450); Red Blood Count 4.86 mil/mm3 (4.50-5.90); Red Cell Distribution Width 14.3 % (11.6-17.2); White Blood Count 4.6 th/mm3 (4.0-11.0)
[2018-02-13 05:30] LABS: Calcium 8.3 mg/dL (8.5-10.1); Carbon Dioxide 26.9 meq/L (21.0-32.0); Potassium 3.7 meq/L (3.5-5.1)
[2018-02-13 05:32] LABS: Chol/HDL Ratio 3.6 Ratio; HDL Cholesterol 54.7 mg/dL (40.0-60.0)
--- NOTE | 2018-02-13 07:44 | P.CONCA ---
History of Present Illness Primary Care Provider: [facility] Chief Complaint: chest pain History of Present Illness: 72-year-old male with hypertension and diabetes who presented for chest pain. The patient states he had significant chest tightness that occurred at rest yesterday. Tightness lasted for several hours and associated with shortness of breath. He states he has been having tightness often when he lays down on his sides, relieved whenever he lies on his back. 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 Upon presentation, BP 234/116, has been given clonidine as needed overnight currently 187/97. EKG with incomplete right bundle branch block and slight anterolateral ST depressions; findings are new compared to 2014 EKG. Troponin 0.02 x 2. Remote tobacco use history. Review of Systems All other systems reviewed negative except as stated in HPI [facility] - History History Provided By: Patient, Medical Record - Medical History Medical History: Medical History (Last Reviewed 02/13/18 @ 07:41 by CHALINO Luis) Diabetes Hypertension - Surgical History Surgical History: Surgical History (Last Updated 02/12/18 @ 16:44 by Juliet Marquez) No history of previous surgery - Tobacco History Second Hand Smoke Exposure: No Smoking Status: Former smoker - Alcohol History How Often Do You Have a Drink Containing Alcohol: 2 to 3 times a week - Substance Use History Substance History: No History of Abuse - Travel History Recent Travel in the [place] Within the Last 8 Weeks: No Recent Travel Out of the Country Within the Last 8 Weeks: No - Immunization History Tetanus Immunization: >5 Years Medications and Allergies Active Medications: Active Medications Acetaminophen (Tylenol) 650 mg PO Q4H PRN PRN Reason: Temp > 100.4 Al Hydroxide/Mg Hydroxide (Milk Of Magntommy Liq) 30 ml PO Q12H PRN PRN Reason: Mild Constipation Amlodipine Besylate (Norvasc) 10 mg PO DAILY PRANAY Aspirin (Aspirin Chew) 81 mg PO DAILY PRANAY Bisacodyl (Dulcolax Supp) 10 mg RECTAL DAILY PRN PRN Reason: SEVERE CONSITIPATION Clonidine HCl (Catapres) 0.1 mg PO Q3H PRN PRN Reason: HYPERTENSION Last Admin: 02/12/18 21:10 Dose: 0.1 mg Dextrose (D50w Vial) 50 ml IV.PUSH UNSCH PRN PRN Reason: PER HYPOGLYCEMIA PROTOCOL Flumazenil (Romazecon Inj) 0.2 mg IV.PUSH Q1M PRN PRN Reason: OVERSEDATION Glucagon (Glucagon Inj) 1 mg OTHER PRN PRN PRN Reason: for Hypoglycemia Protocol Haloperidol Lactate (Haldol Inj) 1 mg IV.PUSH Q15M PRN PRN Reason: for severe agitation Ibuprofen (Motrin) 400 mg PO Q6HR PRN PRN Reason: PAIN SCALE 1 TO 2 Insulin Aspart (Novolog Insulin Correctional Sugar Inj) 0 unit SQ ACHS AND 3AM PRANAY; Protocol Last Admin: 02/13/18 03:46 Dose: Not Given Lactulose (Lactulose Liq) 30 ml PO DAILY PRN PRN Reason: SEVERE CONSITIPATION Lisinopril (Prinivil) 20 mg PO DAILY PRANAY Lorazepam (Ativan) 1 mg PO Q4H PRN PRN Reason: for CIWA 8-10 Lorazepam (Ativan) 2 mg PO Q2H PRN PRN Reason: for CIWA 11-14 Lorazepam (Ativan Inj) 2 mg IV.PUSH Q2H PRN PRN Reason: for CIWA 11-14 Lorazepam (Ativan Inj) 2 mg IV.PUSH Q1H PRN PRN Reason: for CIWA 15-20 Lorazepam (Ativan Inj) 2 mg IV.PUSH Q15M PRN PRN Reason: for CIWA > 20 Lorazepam (Ativan Inj) 1 mg IV.PUSH Q4H PRN PRN Reason: for CIWA 8-10 Morphine Sulfate (Morphine Inj) 2 mg IV.PUSH Q3H PRN PRN Reason: PAIN 3-5; IF UABLE TO TAKE PO Morphine Sulfate (Morphine Inj) 4 mg IV.PUSH Q3H PRN PRN Reason: PAIN 6-10;IF UNABLE TO TAKE PO Morphine Sulfate (Morphine Inj) 2 mg IV.PUSH Q3H PRN PRN Reason: BREAKTHROUGH PAIN Morphine Sulfate (Morphine Inj) 2 mg IV.PUSH Q1H PRN PRN Reason: Pain Scale 7-10 (Intractable) Naloxone HCl (Narcan Inj) 0.4 mg IV.PUSH UNSCH PRN PRN Reason: SEE LABEL COMMENTS Nitroglycerin (Nitro-Bid 2% Oint) 1 inch TOPICAL Q6HR PRANAY Last Admin: 02/13/18 05:17 Dose: 1 inch Nitroglycerin (Nitrostat Sl) 0.4 mg SL Q5M PRN PRN Reason: CHEST PAIN Ondansetron HCl (Zofran Inj) 4 mg IV.PUSH Q6H PRN PRN Reason: NAUSEA OR VOMITING Pantoprazole Sodium (Protonix) 20 mg PO DAILY [facility] Sennosides (Senokot) 17.2 mg PO Q12H PRN PRN Reason: Moderate Constipation Sodium Chloride (Ns Flush) 2 ml IV.FLUSH BID PRANAY Last Admin: 02/13/18 00:31 Dose: Not Given Sodium Chloride (Ns Flush) 2 ml IV.FLUSH PRN PRN PRN Reason: FLUSH AFTER USING IV ACCESS Allergies Allergy/AdvReac Type Severity Reaction Status Date / Time No Known Allergies Allergy Uncoded 09/27/16 09:52 Home Medications Medication Instructions Recorded Confirmed Type lisinopril 20 mg PO DAILY 02/12/18 02/12/18 History metformin 500 mg PO BID 02/12/18 02/12/18 History omeprazole 20 mg PO BID 02/12/18 02/12/18 History Exam Vital signs: Vital Signs 02/12/18 15:58 02/12/18 16:11 02/12/18 16:12 Temperature 97.6 F Pulse Rate 77 Respiratory Rate 18 Blood Pressure 234/116 H 223/109 H Pulse Oximetry 99 98 02/12/18 16:45 02/12/18 18:05 02/12/18 18:31 Temperature Pulse Rate 63 61 74 Respiratory Rate 20 15 17 Blood Pressure 126/73 187/93 H 211/102 H Pulse Oximetry 94 L 98 98 02/12/18 20:20 02/12/18 22:50 02/12/18 23:16 Temperature Pulse Rate 74 63 70 Respiratory Rate 18 17 21 Blood Pressure 189/102 H 185/96 H 173/92 H Pulse Oximetry 95 96 02/12/18 23:40 02/13/18 00:00 02/13/18 04:00 Temperature 96.6 F L 96.1 F L Pulse Rate 66 60 56 L Respiratory Rate 16 18 18 Blood Pressure 170/90 H 163/90 H 186/97 H Pulse Oximetry 96 96 Intake & Output 02/12/18 02/13/18 02/13/18 18:59 06:59 18:59 Weight 210 lb 209 lb 15.986 oz Other: Date of Last Bowel Movement 02/12/18 Weight On Admission 209 lb 15.986 oz Narrative: GENERAL: Well-developed well-nourished. In no acute distress. NECK: No carotid bruits. No JVD. CARDIOVASCULAR: Regular rate and rhythm. No murmur appreciated. RESPIRATORY: No accessory muscle use. Clear to auscultation. Breath sounds equal bilaterally. MUSCULOSKELETAL: No clubbing or cyanosis. No edema. NEUROLOGICAL: Awake and alert. Normal speech. Results 02/13/18 03:52 02/13/18 03:52 Cardiac Enzymes 02/12/18 02/12/18 Range/Units 16:25 21:14 AST 42 H (15-37) U/L Troponin I Less than 0.02 L Less than 0.02 L (0.02-0.05) ng/mL Coagulation 02/12/18 Range/Units 16:25 PT 10.5 (9.8-11.6) sec APTT 26.2 (23.4-31.7) sec Lipids 02/13/18 Range/Units 03:52 Triglycerides 105 (42-150) mg/dL Cholesterol 197 (120-200) mg/dL HDL Cholesterol 54.7 (40.0-60.0) mg/dL Cholesterol/HDL Ratio 3.60 Ratio CBC 02/12/18 02/13/18 Range/Units 16:25 03:52 WBC 6.0 4.6 (4.0-11.0) th/mm3 RBC 5.07 4.86 (4.50-5.90) mil/mm3 Hgb 17.0 15.9 (13.0-17.0) gm/dL Hct 49.0 45.8 (39.0-51.0) % Plt Count 145 L 123 L (150-450) th/mm3 Neut # (Auto) 4.1 3.0 (1.8-7.7) th/mm3 Lymph # (Auto) 1.2 1.0 (1.0-4.8) th/mm3 [place] # (Auto) 0.6 0.4 (0.0-0.9) th/mm3 Eos # (Auto) 0.1 0.1 (0.0-0.4) th/mm3 Baso # (Auto) 0.1 0.0 (0.0-0.2) th/mm3 Comprehensive Metabolic Panel 02/12/18 02/13/18 Range/Units 16:25 03:52 Sodium 141 137 (136-145) meq/L Potassium 3.7 3.7 (3.5-5.1) meq/L Chloride 106 104 (98-107) meq/L Carbon Dioxide 24.1 26.9 (21.0-32.0) meq/L BUN 14 13 (7-18) mg/dL Creatinine 1.04 0.89 (0.60-1.30) mg/dL Calcium 8.0 L 8.3 L (8.5-10.1) mg/dL AST 42 H (15-37) U/L ALT 63 (12-78) U/L Alkaline Phosphatase 68 (45-117) U/L Total Protein 7.5 (6.4-8.2) g/dL Albumin 3.9 (3.4-5.0) g/dL Intake and Output 02/12/18 02/13/18 02/13/18 22:59 06:59 14:59 Other: Date of Last Bowel Movement 02/12/18 Weight 210 lb 209 lb 15.986 oz Weight On Admission 209 lb 15.986 oz - Imaging and Cardiology Imaging: Impressions Chest X-Ray 02/12/18 16:11 CONCLUSION: No acute cardiopulmonary abnormality is identified. Thoracic Aorta CT 02/12/18 16:40 CONCLUSION: 1. No aneurysm or dissection is identified. 2. There is coronary artery calcification and moderate severity atherosclerotic disease in the infrarenal aspect. 3. Additionally, no other acute abnormality is identified to explain the clinical symptoms. Nonacute findings include hepatic steatosis and small hiatal hernia. Assessment and Plan - Plan 72-year-old male with hypertension and diabetes who presented for chest pain Chest pain: Further ischemic evaluation with Lexiscan today, if Lexiscan shows no or mild ischemia will plan for medical management and [facility], if Lexiscan shows moderate to severe ischemia we will plan for C. Start aspirin 81 mg daily. Continue Nitropaste for now. Hold off on beta -ej with resting bradycardia. LDL 121, start atorvastatin 20 mg nightly. Hypertension: Uncontrolled. Continue lisinopril 20 mg daily. Continue clonidine as needed for now. Start amlodipine 10 mg daily. Discussed Condition With: Patient, RN, Dr. Jeff
[2018-02-13] MEDS ORDERED: Pantoprazole Sodium 20 MG DR Tablet PO SCH (09:00)
[2018-02-13] MEDS ORDERED: amLODIPine 10 MG Tablet PO SCH (09:00)
[2018-02-13] MEDS ORDERED: Lisinopril 20 MG Tablet PO SCH (09:00)
[2018-02-13] MEDS ORDERED: Regadenoson Inj 0.4 MG/5 ML Syringe IV.PUSH ONE (10:52)
--- NOTE | 2018-02-13 11:46 | P.PNFP ---
Subjective Interval history: Patient seen and examined this morning. He denies chest pain or shortness of breath. He has no issues. No nausea or vomiting, no fever or chills. <EkoOfelia U - 02/13/18 15:11> Results - Labs Result diagrams: 02/13/18 03:52 02/13/18 03:52 <Azar Jimenez - 02/15/18 13:35> Abnormal lab results 02/12/18 02/12/18 02/12/18 Range/Units 16:25 16:25 21:14 Plt Count 145 L (150-450) th/mm3 [place] % (Auto) 9.6 H (0.0-8.0) % Estimated GFR 71 L (>89) mL/min POC Glucose (68-110) mg/dl Random Glucose (74-106) mg/dL Calcium 8.0 L (8.5-10.1) mg/dL AST 42 H (15-37) U/L Troponin I Less than 0.02 L Less than 0.02 L (0.02-0.05) ng/mL LDL Cholesterol, Calc (0-99) mg/dL 02/13/18 02/13/18 02/13/18 Range/Units 03:52 03:52 08:29 Plt Count 123 L (150-450) th/mm3 [place] % (Auto) 9.2 H (0.0-8.0) % Estimated GFR 85 L (>89) mL/min POC Glucose 129 H (68-110) mg/dl Random Glucose 115 H (74-106) mg/dL Calcium 8.3 L (8.5-10.1) mg/dL AST (15-37) U/L Troponin I (0.02-0.05) ng/mL LDL Cholesterol, Calc 121 H (0-99) mg/dL Short CBC 02/12/18 02/13/18 Range/Units 16:25 03:52 WBC 6.0 4.6 (4.0-11.0) th/mm3 Hgb 17.0 15.9 (13.0-17.0) gm/dL Hct 49.0 45.8 (39.0-51.0) % Plt Count 145 L 123 L (150-450) th/mm3 BMP 02/12/18 02/13/18 16:25 03:52 Sodium 141 137 Potassium 3.7 3.7 Chloride 106 104 Carbon Dioxide 24.1 26.9 BUN 14 13 Creatinine 1.04 0.89 Calcium 8.0 L 8.3 L Cardiac Enzymes 02/12/18 02/12/18 Range/Units 16:25 21:14 Total Creatine Kinase 59 45 (39-308) U/L Troponin I Less than 0.02 L Less than 0.02 L (0.02-0.05) ng/mL Liver Function 02/12/18 Range/Units 16:25 Total Bilirubin 0.9 (0.2-1.0) mg/dL AST 42 H (15-37) U/L ALT 63 (12-78) U/L Alkaline Phosphatase 68 (45-117) U/L Albumin 3.9 (3.4-5.0) g/dL <Ofelia Batista U - 02/13/18 11:46> - Imaging Impressions Chest X-Ray 02/12/18 16:11 CONCLUSION: No acute cardiopulmonary abnormality is identified. Thoracic Aorta CT 02/12/18 16:40 CONCLUSION: 1. No aneurysm or dissection is identified. 2. There is coronary artery calcification and moderate severity atherosclerotic disease in the infrarenal aspect. 3. Additionally, no other acute abnormality is identified to explain the clinical symptoms. Nonacute findings include hepatic steatosis and small hiatal hernia. <Ofelia Batista U - 02/13/18 11:46> Physical Exam Vital signs: Vital Signs 02/12/18 15:58 02/12/18 16:11 02/12/18 16:12 Temperature 97.6 F Pulse Rate 77 Respiratory Rate 18 Blood Pressure 234/116 H 223/109 H Pulse Oximetry 99 98 02/12/18 16:45 02/12/18 18:05 02/12/18 18:31 Temperature Pulse Rate 63 61 74 Respiratory Rate 20 15 17 Blood Pressure 126/73 187/93 H 211/102 H Pulse Oximetry 94 L 98 98 02/12/18 20:20 02/12/18 22:50 02/12/18 23:16 Temperature Pulse Rate 74 63 70 Respiratory Rate 18 17 21 Blood Pressure 189/102 H 185/96 H 173/92 H Pulse Oximetry 95 96 02/12/18 23:40 02/13/18 00:00 02/13/18 04:00 Temperature 96.6 F L 96.1 F L Pulse Rate 66 60 56 L Respiratory Rate 16 18 18 Blood Pressure 170/90 H 163/90 H 186/97 H Pulse Oximetry 96 96 02/13/18 07:42 Temperature 97.4 F L Pulse Rate 61 Respiratory Rate 16 Blood Pressure 169/92 H Pulse Oximetry 95 Intake & Output 02/12/18 02/13/18 02/13/18 18:59 06:59 18:59 Weight 95.254 kg 95.254 kg Other: Date of Last Bowel Movement 02/12/18 Weight On Admission 95.254 [facility] 11[facility]46> Narrative: Gen: Patient lying in bed in NAD Skin: Warm and dry CV: Regular rate and rhythm Resp: CTAB, unlabored breathing Abd: Normoactive bowel sounds, NTTP Ext: No cyanosis or edema, calves nontender to palpation Psych: Normal affect <MarkmarthaOfelia U - 02/13/18 15:11> Assessment and Plan - Assessment (1) Hypertensive urgency Code(s): I16.0 - Hypertensive urgency Status: Resolved (2) Chest pain Code(s): R07.9 - Chest pain, unspecified Status: Resolved (3) GERD (gastroesophageal reflux disease) Code(s): K21.9 - Gastro-esophageal reflux disease without esophagitis Status: Acute (4) Diabetes mellitus Code(s): E11.9 - Type 2 diabetes mellitus without complications Status: Acute (5) Hypocalcemia Code(s): E83.51 - Hypocalcemia Status: Acute (6) DVT prophylaxis Status: Acute (7) Nutrition, metabolism, and development symptoms Code(s): R63.8 - Other symptoms and signs concerning food and fluid intake Status: Acute <Azar Jimenez - 02/15/18 13:35> (1) Hypertensive urgency Code(s): I16.0 - Hypertensive urgency Status: Resolved Plan: Patient with blood pressures 211/102 and chest pain. His initial troponin was < 0.02 and EKG sinus rhythm with new onset RBBB. He only started taking blood pressure medications about 4 months ago. Cardiology consulted * Myocardial perfusion scan was negative for stress-induced ischemia, ejection fraction of 68% with normal wall motion * Start atorvastatin 20 mg p.o. at bedtime * Start aspirin 81 mg p.o. daily * Start amlodipine 10 mg p.o. daily * Continue Nitropaste as needed (2) Chest pain Code(s): R07.9 - Chest pain, unspecified Status: Resolved Plan: Resolved See hypertensive urgency plan (3) GERD (gastroesophageal reflux disease) Code(s): K21.9 - Gastro-esophageal reflux disease without esophagitis Status: Acute Plan: Continue home PPI (4) Diabetes mellitus Code(s): E11.9 - Type 2 diabetes mellitus without complications Status: Acute Plan: -Hold metformin -Start Accu-Cheks with low dose SSI -HBA1C pending (5) Hypocalcemia Code(s): E83.51 - Hypocalcemia Status: Acute Plan: Calcium at 8.0 on admission. -Calcium carbonate chew 500mg once -Monitor (6) DVT prophylaxis Status: Acute Plan: Heparin 5000unit SQ Q12H (7) Nutrition, metabolism, and development symptoms Code(s): R63.8 - Other symptoms and signs concerning food and fluid intake Status: Acute Plan: Fluids: PO intake Electrolytes: monitor replete as needed Nutrition: cardiac diet <Ofelia Batista - 02/13/18 15:01> - Assessment and Plan Discussed Condition With: Seen and examined with Dr. Jimenez-attending and Dr. Dill-PGY 1 <Ofelia Batista [facility] 02/13/18 15:11> Discharge Planning: Plan to discharge home today <Ofelia Batista [facility] 02/13/18 15:11> - Attending Attestation See the residents documentation for details. I saw and evaluated the patient regarding the crowder portions of this evaluation and agree with the residents findings and plans as written. Parts of this note were created using [employer] voice recognition software program. While efforts were made to correct any mistakes made by this software, some mistakes, errors, and omissions may remain in the final note that were not caught when the note was originally created. Plan of care was discussed and agreed upon with the patient as specifically documented in the above note. An opportunity to ask questions with explanation was provided. Patient voiced understanding on all information reviewed and discussed. <Azar Jimenez - 02/15/18 13:35>
--- NOTE | 2018-02-13 12:10 | NM ---
EXAM DATE: 02/13/2018 12:04 PM EST AGE/SEX: 72 years / Male INDICATIONS:Angina. Right bundle branch block Chest pain. CLINICAL DATA: This is the patient's initial encounter. Patient reports that signs and symptoms have been present for 2 days and indicates a pain score of 1/10. MEDICAL/SURGICAL HISTORY: Diabetes mellitus type II. Hypertension. None. COMPARISON: No prior exams available for comparison. DOSE: 8.2 mCi Tc 99m Myoview at rest 27.0 mCi [id number] at stress 0.4 mg Lexiscan STRESS SYMPTOMS: Shortness of breath. EJECTION FRACTION: 68 % TECHNIQUE: The patient underwent pharmacologic stress with infusion of prescribed dose. Continuous ECG tracing was monitored during stress. Gated SPECT imaging was performed after stress and conventi onal SPECT imaging was performed at rest. The examination was performed on a SPECT/CT scanner, both attenuation and non-corrected datasets were reviewed. FINDINGS: Possible small fixed defect anterior wall extending to the apex however wall motion across this segme nt is normal.. There is no redistribution to suggest ischemia. Ejection fraction is 68% with normal wall motion RISK CATEGORY: Low (<1% Annual Motality Rate) CONCLUSION: 1. Negative examination for stress-induced ischemia.. Electronically signed by: Vish Coles MD 02/13/2018 12:08 PM EST
[2018-02-13 16:48] LABS: Hemoglobin A1c 5.9 % (4.3-6.0)
--- NOTE | 2018-02-13 19:15 | ECG ---
Date Performed: 02/13/2018 Time Performed: 04:20:22 PTAGE: 72 years EKG: SINUS BRADYCARDIA BORDERLINE ECG PREVIOUS TRACING : 02/12/2018 22.05 Since the previous tracing, no significant change noted DOCTOR: Erick Esteves Interpretating Date/Time 02/13/2018 19:13:15
--- NOTE | 2018-02-13 19:15 | ECG ---
Date Performed: 02/12/2018 Time Performed: 16:34:28 PTAGE: 72 years EKG: SINUS BRADYCARDIA INCOMPLETE RIGHT BUNDLE BRANCH BLOCK BORDERLINE ECG PREVIOUS TRACING : 04/23/2013 19.02 Since the previous tracing, no significant change noted DOCTOR: Erick Esteves Interpretating Date/Time 02/13/2018 19:12:56
--- NOTE | 2018-02-13 19:15 | ECG ---
Date Performed: 02/12/2018 Time Performed: 22:05:24 PTAGE: 72 years EKG: Sinus rhythm NORMAL ECG PREVIOUS TRACING : 02/12/2018 16.34 Since the previous tracing, no significant change noted DOCTOR: Erick Esteves Interpretating Date/Time 02/13/2018 19:13:07
[2018-02-13] MEDS ORDERED: Aspirin 325 MG Tablet PO SCH (20:00)
== END 2018-02-13 14:26 | disposition home or self-care (01) ==
LOC: NEPE 15:50 → NEDA 15:50 → NEPGCP 02-13 00:09
PROVIDERS: ADMIT Family Medicine; ATTEND Family Medicine